=== PATIENT | female | born 1985 | race Two or more races ===

== ENCOUNTER 2016-11-17 18:46 | Emergency (ER) | payer OTHER ==
[~2016-11-17] VITALS: Ht 172.7 cm; Wt 73.5 kg
[2016-11-17 18:56] VITALS: BP 127/67
== END 2016-11-17 23:53 | disposition left against medical advice (07) ==
LOC: ER 18:46
DX: R10.32 Left lower quadrant pain (principal); Z53.21 Procedure and treatment not carried out due to patient leaving prior to being seen by health care provider